=== PATIENT | female | born 1995 | race Hispanic/Latino ===

== ENCOUNTER 2017-01-27 20:43 | Inpatient (IN) | payer OTHER ==
[2017-01-27] MEDS ORDERED: Clindamycin 600 MG in Sodium Chloride 0.9% 100 ML IVPB ONE (21:24)
[2017-01-27] MEDS ORDERED: Sodium Chloride 0.9% 1,000 ML IV STA (21:26)
--- NOTE | 2017-01-27 21:44 | ED PDOC ---
HPI: General Adult Time Seen by Provider: 01/27/17 21:10 Chief Complaint (Nursing): Abnormal Skin Integrity Chief Complaint (Provider): left ankle pain History Per: Patient (21 y/o female here in ED for evaluation of left ankle pain /erythema x 2 days associated with headache. Patient states she has had blister in back of heels this week and now notes swelling and pain in left ankle. Denies any cough/uri/vomiting/diarrhea. Tetanus 9 years ago.) Past Medical History Reviewed: Historical Data, Nursing Documentation, Vital Signs Vital Signs: Last Vital Signs Temp 99.5 F 01/28/17 01:15 Pulse 77 01/28/17 01:15 Resp 17 01/28/17 01:43 BP 102/64 01/28/17 01:15 Pulse Ox 98 01/28/17 05:15 - Medical History PMH: Hypothyroidism - Family History Family History: States: No Known Family Hx - Home Medications Home Medications: Ambulatory Orders Medication Instructions Recorded Levothyroxine [Synthroid] 1 tab PO DAILY 01/28/17 - Allergies Allergies/Adverse Reactions: Allergies Allergy/AdvReac Type Severity Reaction Status Date / Time No Known Allergies Allergy Verified 01/27/17 20:58 Review of Systems ROS Statement: Except As Marked, All Systems Reviewed And Found Negative Musculoskeletal: Positive for: Other (left ankle pain) Physical Exam - Reviewed Nursing Documentation Reviewed: Yes Vital Signs Reviewed: Yes - Physical Exam Appears: Positive for: Well, Non-toxic, No Acute Distress Head Exam: Positive for: ATRAUMATIC, NORMAL INSPECTION, NORMOCEPHALIC Skin: Positive for: Normal Color, Warm, DRY Eye Exam: Positive for: EOMI, Normal appearance, PERRL ENT: Positive for: Normal ENT Inspection Neck: Positive for: Normal, Painless ROM Cardiovascular/Chest: Positive for: Regular Rate, Rhythm Respiratory: Positive for: CNT, Normal Breath Sounds Gastrointestinal/Abdominal: Positive for: Normal Exam, Bowel Sounds, Soft Back: Positive for: Normal Inspection Extremity: Positive for: Normal ROM, Tenderness, Swelling, Other (erythema noted above left lateral malleoulus with pitting edema of foot. Open wound noted by posterior ankle nonerythematous.). Negative for: Calf Tenderness Neurologic/Psych: Positive for: Alert, Oriented - Laboratory Results Result Diagrams: 01/27/17 22:52 01/27/17 22:52 Urine POC: Negative - ECG O2 Sat by Pulse Oximetry: 98 - Progress ED Course And Treament: BC x2 NS 1 liter wide open tylenol 975mg x 1 dose Clindamycin 600 mg iv x 1 dose d/w podiatry resident Podiatry recommends admission for iv antibiotics. They will cx wound and follow patient. d/w family medicine for admission. Disposition - Clinical Impression Clinical Impression: Cellulitis, Cellulitis of ankle - Patient ED Disposition Is Patient to be Admitted: No - Disposition Disposition Time: 00:28 Condition: GOOD - Pt Status Changed To: Hospital Disposition Of: Inpatient - Admit Certification Admit to Inpatient:: After my assessment, the patient will require hospitalization for at least two midnights. This is because of the severity of symptoms shown, intensity of services needed, and/or the medical risk in this patient being treated as an outpatient.
[2017-01-27 22:56] LABS: BASO # 0.1 K/uL (0.0-0.2); BASO % 0.7 % (0.0-2.0); EOS # 0.2 K/uL (0.0-0.7); EOS % 1.6 % (0.0-4.0); HEMOGLOBIN 13.2 g/dL (12.0-16.0); LYMPH # 2.7 K/uL (1.0-4.3); LYMPH % 23.9 % (20.0-40.0); MEAN CELL VOLUME 88.4 fl (81.0-99.0); MEAN CORPUSCULAR HEMOGLOBIN 29.8 pg (27.0-31.0); MEAN CORPUSCULAR HGB CONC 33.7 g/dL (33.0-37.0); MONO % 9.4 % (0.0-10.0); NEUT # 7.2 K/uL (1.8-7.0); NEUT % 64.4 % (50.0-75.0); RBC 4.42 Mil/uL (3.80-5.20); RED CELL DISTRIBUTION WIDTH 12.9 % (11.5-14.5); WHITE BLOOD COUNT 11.1 K/uL (4.8-10.8)
[2017-01-27 22:59] LABS: VENOUS BLOOD GAS BASE EXCESS 2.5 mmol/L (0.0-2.0); VENOUS BLOOD GAS PCO2 45 mmHg (40-60); VENOUS BLOOD GAS PO2 26 mm/Hg (30-55)
[2017-01-27 23:09] LABS: ALB/GLOB RATIO 1.4 (1.0-2.1); ALBUMIN 4.5 g/dL (3.5-5.0); ALT/SGPT 27 U/L (9-52); AST/SGOT 28 U/L (14-36); BLOOD UREA NITROGEN 12 mg/dl (7-17); CALCIUM 9.4 mg/dL (8.4-10.2); GFR AFRICAN-AMERICAN > 60; GFR NON-AFRICAN AMERICAN > 60
--- NOTE | 2017-01-28 | CP.PCM.CON ---
History of Present Illness - History of Present Illness History of Present Illness: 21 year old female with PMH of hypothyrodism was seen in the ED for left foot pain. Patient started a new job 4 days ago that requires lots walking. She reports wearing new sketchers and forming a blister on the posterior heel. She states her left ankle got swollen afterwards, followed by increase redness in the last few days. She reports 8/10 pain and describe the pain as a throbbing pain, most at the lateral ankle. She reports having a fever today. She denies n/ v/sob/cp or chills. Denies any trauma or falls. Allergies: NKDA Meds: control and hypothyroidism medication FH: mother: hypothroidism, father high cholesterol SH: denies smoking or elicited drug use PSH: oral surgery Past Patient History - Past Social History Smoking Status: Never Smoked - ENDOCRINE/METABOLIC Hx Hypothyroidism: Yes - PSYCHIATRIC Hx Substance Use: No - SURGICAL HISTORY Hx Surgeries: No - ANESTHESIA Hx Anesthesia: No Meds Allergies/Adverse Reactions: Allergies Allergy/AdvReac Type Severity Reaction Status Date / Time No Known Allergies Allergy Verified 01/27/17 20:58 Physical Exam - Constitutional Appears: Well, Non-toxic, No Acute Distress - Extremities Exam Additional comments: Vasc: DP and PT 2/4 bilaterally, 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 Neuro: protective sensation and gross sensation intact bilaterally Derm: dried scab over previous blister at the posterior heel measuring approximately 1 x 1 x .1, no purulence, no odor, erythema noted to the entire posterior lateral ankle and posterior heel, ecchmycosis noted along the route of the peroneal tendons, no fluctuate noted - Neurological Exam Neurological exam: Alert, Oriented x3 - Psychiatric Exam Psychiatric exam: Normal Affect, Normal Mood Results - Vital Signs Recent Vital Signs: Last Vital Signs Temp 100.1 F H 01/27/17 22:34 Pulse 115 H 01/27/17 20:54 Resp 16 01/27/17 20:54 BP 134/79 01/27/17 20:54 Pulse Ox 98 01/27/17 21:46 - Labs Result Diagrams: 01/27/17 22:52 01/27/17 22:52 Labs: Laboratory Results - last 24 hr 01/27/17 01/27/17 01/27/17 22:52 22:52 22:55 WBC 11.1 H RBC 4.42 Hgb 13.2 Hct 39.1 MCV 88.4 MCH 29.8 MCHC 33.7 RDW 12.9 Plt Count 278 MPV 7.0 L Neut % (Auto) 64.4 Lymph % (Auto) 23.9 [place] % (Auto) 9.4 Eos % (Auto) 1.6 Baso % (Auto) 0.7 Neut # 7.2 H Lymph # 2.7 [place] # 1.0 H Eos # 0.2 Baso # 0.1 pO2 26 L VBG pH 7.40 VBG pCO2 45 VBG HCO3 25.5 VBG Total CO2 29.3 H VBG O2 Sat (Calc) 49.3 VBG Base Excess 2.5 H VBG Potassium 3.3 L Glucose 115 H Lactate 1.2 FiO2 21.0 Sodium 140 139.0 Potassium 3.3 L Chloride 103 105.0 Carbon Dioxide 24 Anion Gap 16 BUN 12 Creatinine 0.8 Est GFR ( Amer) > 60 Est GFR (Non-Af Amer) > 60 Random Glucose 112 H Calcium 9.4 Total Bilirubin 1.1 AST 28 ALT 27 Alkaline Phosphatase 72 Total Protein 7.7 Albumin 4.5 Globulin 3.2 Albumin/Globulin Ratio 1.4 Venous Blood Potassium 3.3 L Assessment & Plan - Assessment and Plan (Free Text) Assessment: 21 year old female with PMH of hypothyroidism presents signs most consistent with L foot/ankle cellulitis secondary to posterior heel blister. Plan: Patient was seen and examined at bedside. Charts, labs, and vitals reviewed (101.3 F, [id number], WBC:11) Discussed plan in detail with attending Dr. Herrera Erazo and meets sepsis criteria, will be admitted Blister was deroofed with a blade 15 without incident. Patient tolerated the procedure well. Wound culture was swabbed from any drainage noted. Pending wound culture results Recs ED to start Clindamycin Ordered silvadene, dressed blister with silvadene, DSD, and cling Dispense surgical shoe to offload left painful foot/ankle Patient can be fully weight bear in surgical shoe X-rays reviewed- WNL, no fracture noted Podiatry will continue to follow while in house Thank you for the consult
[2017-01-28] MEDS ORDERED: Silver Sulfadiazine 1% CREAM (50 gm) ONE (00:16)
[2017-01-28] MEDS: Silver Sulfadiazine 1% Cream (20 gm) TOP SCH ×2 (00:24→08:05)
--- NOTE | 2017-01-28 01:21 | CP.PCM.HP ---
History of Present Illness - History of Present Illness History of Present Illness: 21 y/o F with PMH including Hypothyroidism presented to ED for evaluation of left ankle erythema, swelling and fever. Patient reports first noticing skin abrasions to the back of her ankles 4 days ago after walking over 9 miles with "flats" shoes. 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 Two days later, patient noted mild pain, erythema and swelling of the left ankle, which she attributed to musculoskeletal injury. She applied topical voltaren gel which provided some relief. On the day of assessment, patient had progressive pain which rated 8/10 with weight bearing so she decided to seek medical attention. She was found to be febrile in ED at 101.3 with a leukocytosis of 11.1. Patient denied chills, night sweats, dizziness, chest pain, sob, palpitations, abdominal pain, nausea, vomiting, diarrhea or dysuria. PMD: None, recently moved from [place] Present on Admission - Present on Admission Any Indicators Present on Admission: No History of DVT/PE: No History of Uncontrolled Diabetes: No Urinary Catheter: No Decubitus Ulcer Present: No Review of Systems - Review of Systems All systems: reviewed and no additional remarkable complaints except Past Patient History - Infectious Disease Hx of Infectious Diseases: None - Tetanus Immunizations Tetanus Immunization: Unknown - Past Medical History & Family History Past Family History: Reviewed and not pertinent - Past Social History Smoking Status: Never Smoked 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 Alcohol: None Drugs: Denies Home Situation {Lives}: Friends - CARDIAC Hx Cardiac Disorders: No - PULMONARY Hx Respiratory Disorders: No - NEUROLOGICAL Hx Neurological Disorder: No - HEENT Hx HEENT Problems: No - RENAL Hx Chronic Kidney Disease: No - ENDOCRINE/METABOLIC Hx Hypothyroidism: Yes - PSYCHIATRIC Hx Substance Use: No - SURGICAL HISTORY Hx Surgeries: Yes ([place] teeth removal 2013) - ANESTHESIA Hx Anesthesia: Yes Hx Anesthesia Reactions: No Hx Malignant Hyperthermia: No Meds Allergies/Adverse Reactions: Allergies Allergy/AdvReac Type Severity Reaction Status Date / Time No Known Allergies Allergy Verified 01/27/17 20:58 Physical Exam - Constitutional Appears: Non-toxic, No Acute Distress - Head Exam Head Exam: ATRAUMATIC, NORMAL INSPECTION, NORMOCEPHALIC - Eye Exam Eye Exam: EOMI, Normal appearance, PERRL - ENT Exam ENT Exam: Mucous Membranes Moist - Respiratory Exam Respiratory Exam: Clear to Auscultation Bilateral, NORMAL BREATHING PATTERN. absent: Rales, Rhonchi, Wheezes, Respiratory Distress - Cardiovascular Exam Cardiovascular Exam: REGULAR RHYTHM, RRR, +S1, +S2. absent: Systolic Murmur - GI/Abdominal Exam GI & Abdominal Exam: Normal Bowel Sounds, Soft. absent: Distended, Guarding, Rebound, Tenderness - Extremities Exam Extremities exam: Positive for: normal capillary refill. Negative for: calf tenderness Additional comments: Left posterior ankle ulceration present measuring approximately 1cm in diameter with scant bleeding and no purulent drainage. Silver sulfadine ointment placed by podiatry. An area of surrounding blanching erythema and warmth extends proximally (approximately 10cm) over the lateral lower extremity and distally into the left lateral foot. Additionally, a minor superficial ulcer measuring < 1cm is present on the right posterior ankle. - Neurological Exam Neurological exam: Alert, Oriented x3 - Psychiatric Exam Psychiatric exam: Normal Affect, Normal Mood - Skin Skin Exam: Dry, Warm Additional comments: See extremity above. Results - Vital Signs Recent Vital Signs: Last Vital Signs Temp 99.1 F 01/28/17 00:53 Pulse 86 01/28/17 00:53 Resp 16 01/28/17 00:53 BP 114/61 01/28/17 00:53 Pulse Ox 98 01/28/17 00:53 - Labs Result Diagrams: 01/27/17 22:52 01/27/17 22:52 Assessment & Plan - Assessment and Plan (Free Text) Assessment: 21 y/o F with PMH including Hypothyroidism presented to ED for evaluation of left ankle erythema, swelling and fever. Patient was subsequently admitted for left lower extremity cellulitis. Plan: Left lower extremity cellulitis -Associated with fever of 101.3 and mild leukocytosis of 11.1 -Likely secondary to traumatic posterior ankle ulcer -Tdap administered -Podiatry service was consulted in ED who performed wound dressing and applied topical silver sulfa ointment -Xray left ankle obtained which appears to show mild soft tissue swelling and no evidence of fracture. Final read pending -ESR ordered -Wound culture obtained -Clindamycin 600mg IV Q8h started -Motrin 600mg PO Q8h prn for pain -Acetaminophen 650mg PO Q6h fever -Surgical shoe ordered to offload left ankle Hypokalemia -Potassium 3.3 -Kdur 20meq PO once administered Hypothyroidism -Continue home med levothyroxine 88mcg daily DVT Prophylaxis -Lovenox 40mg SC daily
[2017-01-28] MEDS ORDERED: Potassium Chloride 20 mEq ER Tab PO ONE (01:33)
[2017-01-28] MEDS ORDERED: Clindamycin 600 MG in Sodium Chloride 0.9% 100 ML IVPB SCH (06:00)
[2017-01-28] MEDS ORDERED: Levothyroxine 88 MCG TAB PO SCH ×2 (06:30→09:00)
--- NOTE | 2017-01-28 07:34 | RAD ---
HISTORY: cellulitis COMPARISON: No prior FINDINGS: BONES: Normal. No fracture. JOINTS: Normal. No osteoarthritis. SOFT TISSUE: Extensive circumferential soft tissue swelling.. OTHER FINDINGS: None . IMPRESSION: Extensive circumferential soft tissue swelling.
[2017-01-28 08:26] VITALS: BP 158/68; PULSE 84; RESP 20; TEMP 98.5; O2SAT 94
[2017-01-28] MEDS ORDERED: Enoxaparin 40 mg Syringe SC SCH (09:00)
[2017-01-28 11:30] LABS: SQUAMOUS EPITHIAL 1 /hpf (0-5); URINE BILIRUBIN NEGATIVE (NEGATIVE); URINE BLOOD NEGATIVE (NEGATIVE); URINE CLARITY CLEAR (Clear); URINE COLOR YELLOW (YELLOW); URINE GLUCOSE (UA) NEG (Normal); URINE LEUKOCYTE ESTERASE NEG Leu/uL (Negative); URINE NITRATE NEGATIVE (NEGATIVE); URINE PROTEIN NEGATIVE (NEGATIVE); URINE UROBILINOGEN 0.2-1.0 mg/dL (0.2-1.0)
--- NOTE | 2017-01-28 15:20 | CP.PCM.PN ---
Subjective - Date & Time of Evaluation Date of Evaluation: 01/28/17 Time of Evaluation: 01:10 - Subjective Subjective: 21 year old female was seen at bedside for L foot/ankle cellulitis secondary to posterior heel blister infection. She is seen resting comfortably at bedside. Patient states that she feels better today. There is still of the left foot/ ankle but less pain compared to yesterday. Reports feeling she can move her ankle more. Still reports pain with ambulation with surgical shoe but noticed has slightly improved. Denies n/v/sob/cp/chills or f. No acute events over night. 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, digit hair x10, temperature gradient WNL R lower extremity, L ankle hot with non pitting edema at the dorsum of the foot noted, decreased swelling to the L ankle noted Ortho: moderate pain with palpation of the left posterior heel and inferior to lateral mallelous present Neuro: protective sensation and gross sensation intact bilaterally Derm: dried scab over previous blister at the posterior heel measuring approximately 1 x 1 x .1, no purulence, no odor, erythema noted to the entire posterior lateral ankle and posterior heel, ecchmycosis noted along the route of the peroneal tendons, no fluctuate noted, decrease erythema noted - Neurological Exam Neurological Exam: Alert, Awake, Oriented x3 - Psychiatric Exam Psychiatric exam: Normal Affect, Normal Mood Assessment and Plan - Assessment and Plan (Free Text) Assessment: 21 year old female seen at bedside for L foot/ankle cellulitis secondary to posterior heel blister infection- improving Plan: Patient was seen at bedside Discussed the plan in detail with attending Dr. Silverman Charts, labs, vitals reviewed (afebrile, vitals WNL) Cellulitis is improving. Continue to dress posterior heel lesion with silvadene , DSD, and cling until completely healed. D/C with PO Clindamycin 300mg TID and Cipro 500mg BID for 2 weeks Pain with ambulation- continue to wear surgical shoe to offload Recommends OTC Ibuprofen for pain and inflammation Patient is stable per podiatry standpoint Patient to followup with Dr. Silverman in [place] podiatry office.
== END 2017-01-28 13:57 | disposition home or self-care (01) | DRG 603 ==
LOC: H.ER 20:43 → H.ERHOLD 01-28 00:28 → H.MEDSURG1 01-28 01:10
PROVIDERS: ADMIT Family Medicine Geriatric Medicine; ATTEND Family Medicine Geriatric Medicine
DX: L03.116 Cellulitis of left lower limb (principal); E03.9 Hypothyroidism, unspecified; E87.6 Hypokalemia